=== PATIENT | female | born 1955 | race Caucasian/White ===

== ENCOUNTER 2019-06-03 14:05 | Outpatient (CLI) | payer MEDICARE ==
[2019-06-03] MEDS ORDERED: CITA10TA4 PO (14:56)
[2019-06-03] MEDS ORDERED: AMLO10TA8 PO (14:56)
[2019-06-03] MEDS ORDERED: HORMONE TD (15:07)
== END 2019-06-03 23:59 | disposition home or self-care (01) ==
LOC: STAR 14:05
PROVIDERS: ATTEND Internal Medicine
DX: Z01.818 Encounter for other preprocedural examination (principal)
CPT/HCPCS: 93005

== ENCOUNTER 2019-06-10 07:07 | Day surgery (SDC) | payer MEDICARE ==
[~2019-06-10] VITALS: Ht 162.6 cm; Wt 91.6 kg
[~2019-06-10 07:07] MED LIST: AMLO10TA8 PO; CITA10TA4 PO; HORMONE TD
[2019-06-10 07:36] VITALS: BP 138/96
[2019-06-10] MEDS ORDERED: LACTATED RINGERS 1,000 ML IV SCH (07:38)
[2019-06-10] MEDS ORDERED: MIDAZOLAM 1 MG/ML, 2ML ONE (09:53)
[2019-06-10] MEDS ORDERED: FENTANYL PF 250 MCG/5ML ONE (09:53)
[2019-06-10] MEDS ORDERED: PROPOFOL 50 ML ONE (09:54)
[2019-06-10] MEDS ORDERED: KETAMINE 10 MG/ML, 20ML ONE (10:14)
[2019-06-10] MEDS ORDERED: PHENYLEPHRINE 10 MG/ML ONE (10:14)
[2019-06-10] MEDS ORDERED: ONDANSETRON 2MG/ML, 2ML ONE (10:21)
[2019-06-10] MEDS ORDERED: DEXAMETHASONE 4 MG/ML, 1ML ONE (10:21)
[2019-06-10] MEDS ORDERED: DIPHENHYDRAMINE 50 MG/ML, 1ML IVPush PRN (10:30)
[2019-06-10] MEDS ORDERED: HYDROmorphone 2 MG/ML, 1ML IVPush PRN (10:30)
[2019-06-10] MEDS ORDERED: FENTANYL PF 100 MCG/2ML IV PRN (10:30)
[2019-06-10] MEDS ORDERED: PROMETHAZINE 25 MG/ML, 1ML IV PRN (10:30)
[2019-06-10] MEDS ORDERED: OXYcodone 5 MG/5 ML ORAL.SOL UDC PO PRN (10:30)
[2019-06-10] MEDS ORDERED: MEPERIDINE/PF 25MG/ML,1ML IVPush PRN (10:30)
[2019-06-10] MEDS ORDERED: hydrALAzine 20 MG/ML, 1ML IV PRN (10:30)
[2019-06-10] MEDS ORDERED: LABETALOL 5MG/ML, 20ML IV PRN (10:30)
== END 2019-06-10 12:50 | disposition home or self-care (01) ==
LOC: OUT 07:07
PROVIDERS: ATTEND Internal Medicine
DX: D12.2 Benign neoplasm of ascending colon (principal); D12.0 Benign neoplasm of cecum; D12.5 Benign neoplasm of sigmoid colon; K57.30 Diverticulosis of large intestine without perforation or abscess without bleeding; I10 Essential (primary) hypertension; F32.9 Major depressive disorder, single episode, unspecified; Z88.8 Allergy status to other drugs, medicaments and biological substances; Z86.010 Personal history of colon polyps
CPT/HCPCS: 45381; 45385; 88305; A4648; J1100; J2250; J2370; J2405; J2704; J3010; J7120